=== PATIENT | male | born 1965 | race Two or more races ===

== ENCOUNTER 2017-06-28 18:33 | Emergency (ER) | payer MEDICARE, MEDICAID ==
[~2017-06-28] VITALS: Ht 182.9 cm; Wt 169.0 kg
[2017-06-28] MEDS ORDERED: CLOP75TA16 PO (18:44)
[2017-06-28] MEDS ORDERED: ALTEPLASE IV STA (18:48)
[2017-06-28] MEDS ORDERED: ALTEPLASE 100MG/VIAL IV STA ×2 (18:48→19:14)
[2017-06-28] MEDS ORDERED: LABETALOL 5MG/ML SYR 20 MG/4 ML SYRINGE IV ONE (19:00)
[2017-06-28] MEDS ORDERED: ALTEPLASE 81 MG in BAG 1 EACH IV STA (19:14)
[2017-06-28] MEDS ORDERED: LORAZEPAM 2MG/ML CPJ IV ONE (19:45)
[2017-06-28 19:46] LABS: BASOPHILS % 1.1 % (0.0-2.0); EOSINOPHILS % 4.9 % (0.0-5.0); HEMATOCRIT. 33.9 % (42.0-52.0); HEMOGLOBIN. 10.6 g/dL (14.0-18.0); LYMPHOCYTES % 25.7 % (20.0-50.0); MEAN CORPUSCULAR HEMOGLOBIN 24.9 pg (28.0-32.0); MEAN CORPUSCULAR VOLUME 79.2 fL (80.0-94.0); MEAN PLATELET VOLUME 7.8 fl (7.4-10.4); MONOCYTES % 9.4 % (2.0-8.0); NEUTROPHILS % 58.9 % (40.0-76.0); PLATELET 210 x1000/uL (130-400); RED BLOOD CELL COUNT 4.28 mill/uL (4.7-6.1); RED CELL DISTRIBUTION WIDTH 17.8 % (11.6-14.6)
[2017-06-28] MEDS ORDERED: LORAZEPAM 2MG/ML CPJ IM STA (19:49)
[2017-06-28 19:59] LABS: INR 1.1; PARTIAL THROMBOPLASTIN TIME 24.8 sec (23.4-31.0); PROTHROMBIN TIME 11.4 sec (9.4-11.6)
[2017-06-28 20:03] LABS: CHLORIDE 106 mEq/L (98-107)
[2017-06-28 20:04] LABS: TROPONIN I < 0.02 ng/mL (0.00-0.04)
[2017-06-28] MEDS ORDERED: HYDROMORPHONE HCL/PF 2MG/ML CPJ IV ONE ×2 (20:45→22:30)
[2017-06-28] MEDS ORDERED: ONDANSETRON HCL 4MG/2ML VIAL IV ONE (20:45)
[2017-06-28 23:09] VITALS: BP 138/88
== END 2017-06-28 23:25 | disposition short-term general hospital (02) ==
LOC: ER 18:33 → EDBEDREQ 18:47 → CANBEDREQ 22:31 → ER 23:25 → CANBEDREQ 23:59
DX: I63.9 Cerebral infarction, unspecified (principal); R47.81 Slurred speech; R29.810 Facial weakness; R51 Headache; G83.24 Monoplegia of upper limb affecting left nondominant side; G81.94 Hemiplegia, unspecified affecting left nondominant side; I44.0 Atrioventricular block, first degree; F41.8 Other specified anxiety disorders; Z91.041 Radiographic dye allergy status; Z86.73 Personal history of transient ischemic attack (TIA), and cerebral infarction without residual deficits
CPT/HCPCS: 36415; 36556; 37195; 70450; 71045; 80053; 82962; 84484; 85025; 85610; 85730; 86850; 86900; 86901; 93005; 96372; 96374; 96375; 96376; 99291; J1170; J2060; J2405; J2997